=== PATIENT | female | born 1965 | race Caucasian/White ===

== ENCOUNTER 2023-04-24 15:31 | Outpatient (RCR) | payer BC, SELFPAY | END 2023-08-22 23:59 | disposition home or self-care (01) | PROVIDERS: PCP Orthopaedic Surgery; Visit Provider Orthopaedic Surgery | DX: M17.11 Unilateral primary osteoarthritis, right knee (principal); Z96.651 Presence of right artificial knee joint; M25.561 Pain in right knee; Z51.89 Encounter for other specified aftercare; M25.661 Stiffness of right knee, not elsewhere classified | CPT/HCPCS: 97161; 97535 ==

== ENCOUNTER 2023-04-29 09:12 | Day surgery (SDC) | payer BC, SELFPAY ==
[2023-04-29] VITALS (22 sets, daily range): BP systolic 103–148; BP diastolic 63–96; PULSE 51–99; RESP 14–18; TEMP 36.1–36.7; O2SAT 90–99; BMI 43.0
[2023-04-29] MEDS: ACETAMINOPHEN 500 MG TABLET 1000 MG PO ×2 (07:01→19:02)
[2023-04-29] MEDS: OXYCODONE (CR) 10 MG TAB.ER.12H PO (07:01)
[2023-04-29] MEDS: CELECOXIB 200 MG CAPSULE PO (07:01)
[2023-04-29] MEDS: LACTATED RINGERS 1000 ML 1,000 ML 100 ML IV ×2 (07:05→11:36)
[2023-04-29] MEDS: SODIUM CHLORIDE 0.9 % (FLUSH) 10 ML SYRINGE IVF (10:14)
--- NOTE | 2023-04-29 10:15 | SUR.PREOP ---
TIME?OUT:?1040 PT/RN/MDA?VERIFICATION?OF?SURGICAL?SITE Right Knee,?PROCEDURE Aductor Canal Block,?AND?CONSENT OBTAINED?PRIOR?TO?INVASIVE?PROCEDURE.
[2023-04-29] MEDS: fentaNYL 100 MCG/2 ML inj IVP (10:42)
[2023-04-29] MEDS: MIDAZOLAM HCL 1 MG/ML inj IVP (10:42)
[2023-04-29] MEDS: TRANEXAMIC ACID 100 MG/ML INJ 1000 MG IV (11:35)
[2023-04-29] MEDS: CEFAZOLIN 2 GM INJ IVP (11:35)
--- NOTE | 2023-04-29 11:50 | W.ANESCHARGE ---
Anesthesia Charges Start Date/Time Anesthesia Start Date: 04/29/23 Stop Date/Time Anesthesia Stop Date: 04/29/23
--- NOTE | 2023-04-29 11:51 | P.NB_ITS ---
Nerve Block Nerve Block Time Seen by Provider: 10:46 Date Seen: 04/29/23 Type of block requested by surgeon for post-operative analgesia: geniculars Side: right Time out performed: Yes Verification of patient name: Yes Verification of date of : Yes Site marking: site marked Name of person performing procedure: Godfrey Continuous monitoring Was continuous monitoring of O2 sat, B/P, phototypesetting equipment monitor, recorded every 15 minutes?: Yes Procedure Checklist: sterile prep, needles and gloves Medications given in 5ml increments after negative aspiration: Ropivicaine %: 0.5 mL: 9 Needle gauge: 25 Patient tolerated procedure well: Yes Block Charges Block Charge (with Pro Fee): Genicular Nerve Block Use of Ultrasound Machine for Block: No
--- NOTE | 2023-04-29 11:51 | W.PM.NB ---
Nerve Block Nerve Block Time Seen by Provider: 10:46 Date Seen: 04/29/23 Type of block requested by surgeon for post-operative analgesia: adductor canal Side: right Time out performed: Yes Verification of patient name: Yes Verification of date of : Yes Site marking: site marked Name of person performing procedure: Godfrey Continuous monitoring Was continuous monitoring of O2 sat, B/P, surveillance system monitor, recorded every 15 minutes?: Yes Procedure Checklist: sterile prep, needles and gloves Ultrasound guided. Images saved: Yes Medications given in 5ml increments after negative aspiration: Ropivicaine %: 0.5 mL: 20 Needle gauge: 20 Decadron (mg): 10 Precedex (mcg): 25 Patient tolerated procedure well: Yes Additional comments: Needle noted adjacent to nerve Block Charges Block Charge (with Pro Fee): Femoral Nerve Use of Ultrasound Machine for Block: Yes- US Guidance/pain block
--- NOTE | 2023-04-29 12:58 | CRLHL7_ITS ---
For Patients: As a result of the Cures Act, medical imaging exams and procedure reports are released immediately into your electronic medical record. You may view this report before your referring provider. If you have questions, please contact your health care provider. INDICATION: Followup right knee arthroplasty. TECHNIQUE: Two views of the right knee performed postoperatively. FINDINGS: Right total knee arthroplasty. Patellar resurfacing. The components are adequately aligned and well seated. Air within the soft tissues and joint space related to the surgery. IMPRESSION: Right total knee arthroplasty. The components are adequately aligned and well seated. Dictated by Trenton Bee MD @ 04/29/2023 2:12:36 PM (Electronically Signed)
--- NOTE | 2023-04-29 13:00 | P.ORPRC_ITS ---
Procedure Note Date of procedure: 04/29/23 Procedure: PREOPERATIVE DIAGNOSIS: Right knee osteoarthritis, morbid obesity POSTOPERATIVE DIAGNOSIS: Right knee osteoarthritis, morbid obesity NAME OF OPERATION: Right total knee arthroplasty SURGEON: Floyd Martinez MD DIRECTOR INTERNAL AUDIT: CONSUELO Farmer ANESTHESIA: Spinal ESTIMATED BLOOD LOSS: 0 mL COMPLICATIONS: None SPECIMENS: None DRAINS: None PREOPERATIVE ANTIBIOTICS: Ancef 3 grams, antibiotic impregnated cement IMPLANTS: 1. J&J Attune # 8 posterior stabilized femur 2. # 7 fixed-bearing revision tibial tray with a 14 mm x 50 mm cemented stem 3. # 8 posterior stabilized, 5 mm fixed-bearing polyethylene 4. 41 patella INDICATIONS: The patient is a 57-year-old with a longstanding history of severe, unrelenting right knee pain secondary to end-stage (grade IV) right knee osteoarthritis. Despite appropriate nonoperative management, including activity modification, anti-inflammatories, [id number] pain medication, bracing, physical therapy, and injections they continue to have pain and disability. Operative intervention was offered. The risks, benefits and expected outcomes were discussed in detail. These included but were not limited to: Infection, bleeding, injury to blood vessel or nerve, venous thromboembolism. All questions were answered to their satisfaction. Use of an recruitment and outreach assistant was necessary throughout the case for patient positioning and safety, soft tissue retraction, and closure. PROCEDURE: Spinal anesthesia was administered. The patient was placed supine on the operating table. The recruitment and outreach assistant made sure the patient was positioned appropriately. The lower extremity was prepped and draped in the usual sterile fashion. The limb was exsanguinated with the Oc bandage. The pneumatic tourniquet was inflated to 300 mmHg. A standard anterior incision was made with the knee in flexion. Subcutaneous dissection was sharply taken through fascial layer #1. Full-thickness medial and lateral flaps were elevated. The recruitment and outreach assistant retracted the soft tissues and protected them throughout the case. A standard medial parapatellar approach was made. The patella was everted. The infrapatellar fat pad was preserved. The menisci and cruciate ligaments were sharply d?brided. Marginal osteophytes were d?brided with the rongeur. The drill was used to penetrate the femoral canal. The canal was aspirated and irrigated with pulse lavage. The intramedullary femoral guide was placed for a 5-degree valgus cut, removing 10 mm off the distal femur. The saw was used to make the cut. Whitesides line and the trans epicondylar axis were marked. The femoral sizing guide was pinned onto the distal femur. Three degrees of external rotation nicely parallels the transepicondylar axis. Pins were placed for posterior referencing. The four-in-one cutting guide was pinned onto the distal femur. The anterior, posterior, and chamfer cuts were made. The recruitment and outreach assistant protected the collateral ligaments. The box cutting guide was pinned. The box cuts were made. The boxed trial was placed and was an excellent fit. Drill holes for the lugs were made. Attention was then turned to the proximal tibia. The extramedullary tibial guide was placed for a neutral varus/valgus cut with 5 degrees of posterior slope, removing 2 mm based off the medial tibial surface. The recruitment and outreach assistant protected the collateral ligaments and the neurovascular bundle. The saw was used to make the cut. Trial components were placed. The knee was nicely balanced in both flexion and extension. The trial components were removed. The tray was placed in appropriate rotation, parallel to our tibial cutting pins. It was pinned by the recruitment and outreach assistant. The long drill and the short drill were used. The assembled stemmed tibial trial was placed in appropriate rotation and the punch was used. The tray was removed. The punch was used again. We placed a bone plug in the femoral canal. Attention was then turned to the patella. [place] patellar thickness was 23 mm. The lobster claw resection guide was used with the 9.5 mm edison. The saw was used to make the cut. Drill holes were made by the recruitment and outreach assistant. The trial was placed and was an excellent fit. Cancellous surfaces were irrigated with pulse lavage and thoroughly dried by the recruitment and outreach assistant. We cemented the tibial component, then the femoral component. We impacted the 5 mm polyethylene onto the tibial tray. The knee was brought into full extension. We then cemented the patellar component. Excessive cement was removed. The cement was allowed to harden. The knee was taken through a range of motion and was found to be nicely balanced in both flexion and extension. The patella tracks centrally. The recruitment and outreach assistant did a three minute dilute Betadine solution soak. The recruitment and outreach assistant irrigated the wound with 3 liters of normal saline via pulse lavage. The recruitment and outreach assistant reapproximated the extensor mechanism with #1 Vicryl in an interrupted [id number] fashion. The recruitment and outreach assistant then ran the extensor mechanism with a #1 PDO Stratafix. The recruitment and outreach assistant closed the subcutaneous tissues with a 3-0 Stratafix and the skin with a running 3-0 Stratafix in a subcuticular fashion. Glue was used to seal the skin. The recruitment and outreach assistant placed a dry dressing, LUIS ENRIQUE stocking, and Polar Care. Sponge and needle counts were correct x2. The patient tolerated the procedure well. There were no apparent complications. They were carefully transferred to the hospital bed and taken to the postanesthesia care unit in satisfactory condition. PLAN: The patient will be mobilized with physical therapy. Aspirin will be used for DVT prophylaxis. They will be discharged to home once medically appropriate.
--- NOTE | 2023-04-29 13:29 | W.ANESCHARGE ---
Anesthesia Charges Start Date/Time Anesthesia Start Date: 04/29/23 Anesthesia Start Time: 11:16 Stop Date/Time Anesthesia Stop Date: 04/29/23 Anesthesia Stop Time: 13:29
[2023-04-29] MEDS: ONDANSETRON 2 MG/ML inj 4 MG IVP ×2 (13:43→21:39)
[2023-04-29] MEDS: fentaNYL 100 MCG/2 ML inj 50 MCG IVP (13:53)
--- NOTE | 2023-04-29 14:19 | SUR.PHASEI ---
patient met discharge criteria per anesthesia
--- NOTE | 2023-04-29 14:53 | PC.NURSE ---
End of Shift Note: Patient arrived to the unit aroun14:20 from PACU. Complaining of a little nausea but did receive zofran in PACU along with some discomfort in the knee she had just received pain medication also. Alert and orientated. Will continue to monitor.
[2023-04-29] MEDS: HYDROmorphone 0.5 mg/0.5 ml inj IVP ×3 (15:46→22:25)
[2023-04-29] MEDS: OXYCODONE 5 MG TABLET PO ×5 (16:02→22:25)
--- NOTE | 2023-04-29 17:14 | PM.IMCN1 ---
Date of Consult Patient: Norah Patient Consult date: 04/29/23 Requesting Physician: Orthopedics Primary Care Provider: Shayla Root D.O. Consult Narrative Reason for consult: Postop care HTN, hypothyroid, MARCO A, hyperlipidemia, ADHD, asthma, anxiety Narrative: Steff Marcum is a 57 year old woman with advanced right gonarthrosis undergoes elective right total knee arthroplasty today successfully without any complications. Review of Systems Status of ROS: Reports: 10 or more systems reviewed and unremarkable except as noted in History and below [facility] Medical History (Updated 04/29/23 @ 17:26 by Adolfo Dueñas MD) Insomnia ?G47.00 - Insomnia, unspecified (ICD-10) Adenomatous colon polyp ?D12.6 - Benign neoplasm of colon, unspecified (ICD-10) Thrombocytosis ?D75.839 - Thrombocytosis, unspecified (ICD-10) Leukocytosis ?D72.829 - Elevated white blood cell count, unspecified (ICD-10) Attention deficit hyperactivity disorder (ADHD) ?F90.9 - Attention-deficit hyperactivity disorder, unspecified type (ICD-10) Fatigue ?R53.83 - Other fatigue (ICD-10) Post concussion syndrome ?F07.81 - Postconcussional syndrome (ICD-10) Thrombocytopenia ?D69.6 - Thrombocytopenia, unspecified (ICD-10) Obstructive sleep apnea ?G47.33 - Obstructive sleep apnea (adult) (pediatric) (ICD-10) Nontoxic multinodular goiter ?E04.2 - Nontoxic multinodular goiter (ICD-10) Hypercholesterolemia ?E78.00 - Pure hypercholesterolemia, unspecified (ICD-10) 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) Anxiety ?F41.9 - Anxiety disorder, unspecified (ICD-10) Asthma ?J45.909 - Unspecified asthma, uncomplicated (ICD-10) Arthritis ?M19.90 - Unspecified osteoarthritis, unspecified site (ICD-10) Hypertension ?I10 - Essential (primary) hypertension (ICD-10) Sleep apnea ?G47.30 - Sleep apnea, unspecified (ICD-10) Neck pain ?M54.2 - Cervicalgia (ICD-10) Right knee meniscal tear ?S83.206A - Unspecified tear of unspecified meniscus, current injury, right knee, initial encounter (ICD-10) Hypothyroid ?E03.9 - Hypothyroidism, unspecified (ICD-10) Surgical History (Updated 04/29/23 @ 17:26 by Adolfo Dueñas MD) Status post cholecystectomy ?Z90.49 - Acquired absence of other specified parts of digestive tract (ICD-10) Status post colonoscopy with polypectomy ?Z98.890 - Other specified postprocedural states (ICD-10) Status post bariatric surgery ?Z98.84 - Bariatric surgery status (ICD-10) H/O section ?Z98.891 - History of uterine scar from previous surgery (ICD-10) History of right knee surgery ?Z98.890 - Other specified postprocedural states (ICD-10) Family History Father Dementia Diabetes type I Hypothyroid Sleep apnea Mother High blood pressure Sleep apnea Sister Thyroid cancer Social History Smoking Status: Never smoker Do you use any of these nicotine containing products: None How often do you have a drink containing alcohol: 2-4 times a month Alcohol type: hard liquor How many standard drinks containing alcohol do you have on a typical day: 1 or 2 How often do you have six or more drinks on one occasion: Never AUDIT-C Alcohol total score: 2 Non-prescribed substance use: denies use Caffeine: Yes (coffee, 2 cups/day) Are you using contraception or practicing any form of control: No Meds Home Medications and Allergies Home Medications Medication Instructions Recorded Confirmed Type albuterol sulfate 90 mcg/actuation 2 puff inhalation Q6H PRN 02/10/23 04/29/23 History aerosol inhaler aspirin 81 mg tablet,delayed 81 mg PO QDAY 02/10/23 04/29/23 History release atorvastatin 10 mg tablet 10 mg PO QHS 02/10/23 04/29/23 History biotin 1 mg capsule 1 mg PO QDAY 02/10/23 04/29/23 History cholecalciferol (vitamin D3) 50 50 mcg PO QDAY 02/10/23 04/29/23 History mcg (2,000 unit) capsule cyanocobalamin (vitamin B-12) 1,000 mcg PO QDAY 02/10/23 04/29/23 History 1,000 mcg capsule fluticasone propionate 250 1 inh inhalation BID 02/10/23 04/29/23 History mcg/actuation blister powder for inhalation levothyroxine 150 mcg capsule 150 mcg PO QDAY 02/10/23 04/29/23 History lisdexamfetamine 40 mg capsule 40 mg PO QAM 02/10/23 04/29/23 History (Vyvanse) losartan 100 1 tab PO QDAY 02/10/23 04/29/23 History mg-hydrochlorothiazide 12.5 mg tablet montelukast 10 mg tablet 10 mg PO QDAY 02/10/23 04/29/23 History multivitamin 1 tab PO QDAY 02/10/23 04/29/23 History omega-3 fatty acids 1,000 mg 1,000 mg PO QDAY 02/10/23 04/29/23 History capsule trazodone 50 mg tablet 50 mg PO QHS PRN 02/10/23 04/29/23 History venlafaxine 150 mg 150 mg PO QDAY 02/10/23 04/29/23 History capsule,extended release 24 hr venlafaxine 75 mg capsule,extended 75 mg PO QDAY 02/10/23 04/29/23 History release 24 hr Allergies Allergy/AdvReac Type Severity Reaction Status Date / Time codeine Allergy racing Verified 04/29/23 09:32 heart Exam Narrative: Exam Narrative: Examine her in the medical-surgical unit as she is laying in the semi recumbent position in her bed. Appears comfortable and in no acute distress. Vision and hearing are grossly normal. Alert and oriented to self, place, time, situation. Friendly, cooperative, articulate. Mood and affect are congruent. Obese. BMI 43. Neck is supple. No JVD or hepatojugular reflux. Lungs are clear to auscultation without wheezing, rhonchi, or rales. Chest wall excursions are full. No CVA tenderness or tenderness to percussion over the spine. Heart tones with regular rhythm, normal S1-S2, without murmur, gallop, or rub. PMI is not laterally displaced. Active bowel sounds, soft, nontender. No rebound or guarding. Moves all 4 extremities. No focal motor neurologic deficits. Const: Vital Signs, click to edit/add: Vital Signs - 24 hr 04/29/23 09:41 04/29/23 10:41 04/29/23 10:46 Temperature 98.1 F Pulse Rate 71 70 61 Pulse Rate [Pulse Oximeter] Respiratory Rate 16 16 16 Blood Pressure 122/83 132/78 121/70 Blood Pressure [Le ft Arm] Pulse Oximetry 98 99 99 Oxygen Delivery Me thod Room Air Nasal Cannula Nasal Cannula Oxygen Flow Rate 2 2 04/29/23 13:24 04/29/23 13:30 04/29/23 13:35 Temperature 97.1 F L 97.1 F L 97.1 F L Pulse Rate 66 62 60 Pulse Rate [Pulse Oximeter] Respiratory Rate 17 16 16 Blood Pressure 103/63 109/72 122/79 Blood Pressure [Le ft Arm] Pulse Oximetry 93 93 93 Oxygen Delivery Me thod Room Air Room Air Room Air Oxygen Flow Rate 04/29/23 13:40 04/29/23 13:45 04/29/23 13:50 Temperature 97.1 F L 97.1 F L 97.1 F L Pulse Rate 58 L 55 L 51 L Pulse Rate [Pulse Oximeter] Respiratory Rate 16 16 16 Blood Pressure 119/75 116/78 122/79 Blood Pressure [Le ft Arm] Pulse Oximetry 94 92 94 Oxygen Delivery Nd thod Room Air Room Air Room Air Oxygen Flow Rate 04/29/23 13:55 04/29/23 14:00 04/29/23 14:00 Temperature 97.1 F L 97.1 F L 97.0 F L Pulse Rate 52 L 55 L 86 Pulse Rate [Pulse Oximeter] Respiratory Rate 14 16 18 Blood Pressure 129/77 126/72 Blood Pressure [Le ft Arm] 118/80 Pulse Oximetry 95 94 Oxygen Delivery Me thod Room Air Room Air Room Air Oxygen Flow Rate 04/29/23 14:05 04/29/23 14:30 04/29/23 14:45 Temperature 97.1 F L 97.0 F L 97.0 F L Pulse Rate 56 L Pulse Rate [Pulse Oximeter] 55 L 56 L Respiratory Rate 16 18 18 Blood Pressure 123/78 Blood Pressure [Le ft Arm] 130/77 125/85 Pulse Oximetry 94 95 92 Oxygen Delivery Me thod Room Air Room Air Room Air Oxygen Flow Rate 04/29/23 15:00 04/29/23 15:00 04/29/23 15:15 Temperature 97.0 F L 97.0 F L Pulse Rate Pulse Rate [Pulse Oximeter] 57 L 59 L Respiratory Rate 18 18 Blood Pressure Blood Pressure [Le ft Arm] 122/81 138/87 Pulse Oximetry 94 93 93 Oxygen Delivery Me thod Room Air Room Air Oxygen Flow Rate Documenting provider has reviewed patient's vital signs: yes Assessment and Plan Assessment and plan (1) Bilateral primary osteoarthritis of knee: Problem comment: Medial compartment end-stage right worse than left Status: Acute (2) Osteoarthritis of right knee: Status: Acute (3) Status post total right knee replacement: Status: Acute (4) Hypertension: Status: Acute (5) Asthma: Status: Acute (6) Hypothyroid: Status: Acute (7) Obstructive sleep apnea: Problem comment: On home CPAP Status: Acute (8) Obesity: Problem comment: BMI 43 Status: Acute (9) Pneumonia: Problem comment: History of pneumonia early in 2022, resolved Status: Acute Plan 1. Reviewed impression with patient and . 2. Answered their questions. 3. Hold antihypertensive medications for now. 4. Resume asthma medications. 5. Continue with thyroid supplementation. 6. Continue with home CPAP. 7. Agree with postoperative venous thromboembolism prophylaxis efforts. 8. Agree with perioperative antibiotic prophylaxis 9. Patient ready for discharge from hospital from medical perspective. Will follow with Orthopedic surgery while patient is in hospital. Have completed discharge from hospitalist perspective. 10. Patient agreeable with above stated plans and recommendations.
[2023-04-29] MEDS: LACTATED RINGERS 1000 ML 1,000 ML 75 ML IV (18:18)
[2023-04-29] MEDS: ATORVASTATIN 10 MG TABLET PO (20:21)
[2023-04-29] MEDS: ASPIRIN 81 MG TABLET EC PO (20:21)
[2023-04-29] MEDS: SENNOSIDES 1 TAB TABLET 2 TAB PO (20:22)
--- NOTE | 2023-04-29 23:22 | PC.NURSE ---
End of shift-- Very pleasant and cooperative, alert and oriented patient. VSS and pt is afebrile. Pt has c/o pain in right knee which she rated as high as 9 out of 10 today and has been given Oxycodone and Dilaudid in addition to scheduled Tylenol and ice via cryo-cuff with only temporary relief. See eMAR for details. SpO2 noted to drop as low as 85-86% on RA and CPAP and O2 was applied at 2L. to maintain sats >90%. Will notify MD. Dressing to right knee is C/D/I and CMS WNL. LS CTA. She did c/o some mild nausea this evening and was given Zofran and an aroma therapy patch with stated relief. She did tolerate a regular dinner without difficulty. She was up to the chair and BR with assist of 1, belt and walker and tolerated it well. Voided 450ml of straw colored urine this shift. Report to HORTENSIA Julien.
[2023-04-30 01:10] VITALS: BP 124/82; PULSE 70; PULSE 77; RESP 18; TEMP 36.2; O2SAT 93
[2023-04-30] MEDS: OXYCODONE 5 MG TABLET PO ×4 (01:12→11:13)
[2023-04-30] MEDS: ONDANSETRON 2 MG/ML inj 4 MG IVP (01:13)
[2023-04-30] MEDS: ACETAMINOPHEN 500 MG TABLET 1000 MG PO ×2 (01:13→06:04)
[2023-04-30] MEDS: diphenhydrAMINE 50 MG/ML inj IVP (01:13)
[2023-04-30] MEDS: HYDROmorphone 0.5 mg/0.5 ml inj IVP (02:49)
[2023-04-30 06:00] VITALS: BP 133/76; PULSE 66; RESP 18; TEMP 36.1; O2SAT 92
[2023-04-30] MEDS: LEVOTHYROXINE 75 MCG TABLET 150 MCG PO (06:05)
[2023-04-30 06:16] LABS: Basophils Percent Auto 0.1 % (0.0-3.0); Eosinophils Percent Auto 0.1 % (0.0-7.0); Hematocrit 39.2 % (33.0-51.0); Hemoglobin* 12.8 gm/dL (12.0-16.0); Immature Granulocytes Pct Auto 0.3 %; Lymphocytes Percent Auto 5.4 % (20-44); Mean Corpuscular HGB Conc 33 gm/dL (32-36); Mean Corpuscular Hemoglobin 30 pg (26-34); Mean Corpuscular Volume 91 fL (80-100); Monocytes Percent Auto 5.2 % (0.0-11.0); Neutrophils Percent Auto 88.9 % (42.0-72.0); Platelet Count* 438 K/uL (140-440); RDW Coefficient of Variation % 14.6 % (11.5-15.5); White Blood Count* 19.02 K/uL (4.50-11.00)
[2023-04-30 06:17] LABS: Slide Review Reflex No
--- NOTE | 2023-04-30 06:19 | PC.NURSE ---
Shift note: The pt has been pleasant and cooperative with nursing staff. The right knee surgical dressing has been C/D/I. CMS on both legs are intact. The pt has been reporting 3-9/10 pain to the right knee; The pain has been well managed with PRN pain medications and Scheduled pain medication; X1 0.5 mg Dilaudid IVP was given for breakout throughout a pain was given this shift. 2L of oxygen administered via NC to maintain Spo2 in the 90s. Zofran was given x1 for nausea with a good relief. The pt was C/O mild itching on her chest, neck and legs; small redness noted to the chest and neck- 25mg Benadryl IV was given - the pt stated it helped a lot She was up to the BR this AM with a walker; she tolerated the activity with minor pain. Urine out was 400 cc this shift. The pt denied any acute distress throughout the night
[2023-04-30 06:30] LABS: Potassium* 4.4 mmol/L (3.6-5.1); Sodium* 138 mmol/L (135-149)
[2023-04-30 06:33] LABS: Creatinine* 0.7 mg/dL (0.5-1.5); Est. Creatinine Clearance* 93.78; Estimated Glomerular Filt Rate 101 ml/min; INR 1.03 (0.91-1.10); Prothrombin Time 14.1 Seconds
[2023-04-30 06:34] LABS: Blood Urea Nitrogen* 15 mg/dL (7-30)
[2023-04-30 07:30] VITALS: BP 132/84; PULSE 66; RESP 20; TEMP 36.9; O2SAT 98
[2023-04-30] MEDS: VENLAFAXINE ER 75 MG CAPSULE 225 MG PO (08:10)
[2023-04-30] MEDS: ASPIRIN 81 MG TABLET EC PO (08:10)
[2023-04-30] MEDS: SENNOSIDES 1 TAB TABLET 2 TAB PO (08:11)
[2023-04-30] MEDS: MONTELUKAST 10 MG TABLET PO (08:11)
--- NOTE | 2023-04-30 08:26 | PM.ORPN ---
Subjective Subjective Time Seen by Provider: 07:30 Date Seen: 04/30/23 Principal diagnosis: Status post right total knee arthroplasty Interval history: Steff is doing well this morning. She will discharge to home later today. Ortho Exam Narrative Exam Narrative: Alert and oriented x3. Patient is in no acute distress. Converses without labored breathing. Hearing is grossly intact. Ambulates with a Walker. Examination of the right lower extremity shows dressing is intact. There is no erythema or warmth or sign of infection. Bilateral calves are soft and nontender. CMS is intact right lower extremity. Mild edema. Mild effusion. Const Vital Signs, click to edit/add: Vital Signs - 24 hr 04/29/23 09:41 04/29/23 10:41 04/29/23 10:46 Temperature 98.1 F Pulse Rate 71 70 61 Pulse Rate [Pulse Oximeter] Respiratory Rate 16 16 16 Blood Pressure 122/83 132/78 121/70 Blood Pressure [Left Arm] Pulse Oximetry 98 99 99 Oxygen Delivery Method Room Air Nasal Cannula Nasal Cannula Oxygen Flow Rate 2 2 04/29/23 13:24 04/29/23 13:30 04/29/23 13:35 Temperature 97.1 F L 97.1 F L 97.1 F L Pulse Rate 66 62 60 Pulse Rate [Pulse Oximeter] Respiratory Rate 17 16 16 Blood Pressure 103/63 109/72 122/79 Blood Pressure [Left Arm] Pulse Oximetry 93 93 93 Oxygen Delivery Method Room Air Room Air Room Air Oxygen Flow Rate 04/29/23 13:40 04/29/23 13:45 04/29/23 13:50 Temperature 97.1 F L 97.1 F L 97.1 F L Pulse Rate 58 L 55 L 51 L Pulse Rate [Pulse Oximeter] Respiratory Rate 16 16 16 Blood Pressure 119/75 116/78 122/79 Blood Pressure [Left Arm] Pulse Oximetry 94 92 94 Oxygen Delivery Method Room Air Room Air Room Air Oxygen Flow Rate 04/29/23 13:55 04/29/23 14:00 04/29/23 14:00 Temperature 97.1 F L 97.1 F L 97.0 F L Pulse Rate 52 L 55 L 86 Pulse Rate [Pulse Oximeter] Respiratory Rate 14 16 18 Blood Pressure 129/77 126/72 Blood Pressure [Left Arm] 118/80 Pulse Oximetry 95 94 Oxygen Delivery Method Room Air Room Air Room Air Oxygen Flow Rate 04/29/23 14:05 04/29/23 14:30 04/29/23 14:45 Temperature 97.1 F L 97.0 F L 97.0 F L Pulse Rate 56 L Pulse Rate [Pulse Oximeter] 55 L 56 L Respiratory Rate 16 18 18 Blood Pressure 123/78 Blood Pressure [Left Arm] 130/77 125/85 Pulse Oximetry 94 95 92 Oxygen Delivery Method Room Air Room Air Room Air Oxygen Flow Rate 04/29/23 15:00 04/29/23 15:00 04/29/23 15:00 Temperature 97.0 F L Pulse Rate Pulse Rate [Pulse Oximeter] 57 L Respiratory Rate 18 18 Blood Pressure Blood Pressure [Left Arm] 122/81 Pulse Oximetry 94 93 Oxygen Delivery Method Room Air Oxygen Flow Rate 04/29/23 15:15 04/29/23 15:45 04/29/23 16:30 Temperature 97.0 F L 97.5 F L 97.5 F L Pulse Rate Pulse Rate [Pulse Oximeter] 59 L 63 71 Respiratory Rate 18 18 18 Blood Pressure Blood Pressure [Left Arm] 138/87 122/96 H 119/84 Pulse Oximetry 93 94 90 Oxygen Delivery Method Room Air Room Air Room Air Oxygen Flow Rate 04/29/23 17:15 04/29/23 18:15 04/29/23 19:12 Temperature 97.5 F L Pulse Rate Pulse Rate [Pulse Oximeter] 71 71 99 Respiratory Rate 18 16 18 Blood Pressure Blood Pressure [Left Arm] 137/86 141/83 H 148/93 H Pulse Oximetry 93 95 95 Oxygen Delivery Method Room Air Nasal Cannula Nasal Cannula Oxygen Flow Rate 2 2 04/29/23 20:15 04/30/23 01:10 04/30/23 01:10 Temperature 97.3 F L Pulse Rate Pulse Rate [Pulse Oximeter] 77 77 Respiratory Rate 18 18 Blood Pressure Blood Pressure [Left Arm] 120/94 H Pulse Oximetry 93 93 Oxygen Delivery Method Nasal Cannula Oxygen Flow Rate 2 04/30/23 01:10 04/30/23 06:00 Temperature 97.1 F L 97 F L Pulse Rate Pulse Rate [Pulse Oximeter] 70 66 Respiratory Rate 18 18 Blood Pressure Blood Pressure [Left Arm] 124/82 133/76 Pulse Oximetry 93 92 Oxygen Delivery Method Nasal Cannula Room Air Oxygen Flow Rate 2 Assessment and Plan Assessment and plan (1) Status post total right knee replacement: Problem details: 04/29/2023 Status: Acute Assessment and Plan: Plan for discharge is today to home if they meet discharge criteria. DVT prophylaxis includes aspirin 81 mg twice daily x1 month, Osbaldo stockings x1 month may remove for 1 hr per day, frequent ambulation Remove dressing in 1 week. Observe wound and phone Orthopedics with any questions or concerns Return to clinic in 1 week for a wound check Return to clinic in [address] Martinez Minimize narcotic use. Wean off and discontinue soon as possible. Activities as tolerated. No strenuous activity. Outpatient physical therapy as scheduled. Ice and elevate the operative extremity. No restriction on ice. (2) Hypertension: Status: Acute (3) Asthma: Status: Acute (4) Hypothyroid: Status: Acute (5) Obstructive sleep apnea: Problem details: On home CPAP Status: Acute (6) Obesity: Problem details: BMI 43 Status: Acute (7) Pneumonia: Problem details: History of pneumonia early in 2022, resolved Status: Acute
--- NOTE | 2023-04-30 15:11 | PC.SOCIAL ---
Per therapy, pt is moving around well during therapy. Pt has assistance from pt's spouse in recovery at home. There are no identified social work needs.
== END 2023-04-30 12:40 | disposition home or self-care (01) ==
LOC: OR 09:13 → MEDSURG 10:03
PROVIDERS: PCP Internal Medicine; Visit Provider Orthopaedic Surgery
PROC: (CPT 27447; principal; 2023-04-29 11:15)
DX: M17.11 Unilateral primary osteoarthritis, right knee (principal); G89.18 Other acute postprocedural pain; E66.01 Morbid (severe) obesity due to excess calories; I10 Essential (primary) hypertension; E03.9 Hypothyroidism, unspecified; G47.33 Obstructive sleep apnea (adult) (pediatric); J45.909 Unspecified asthma, uncomplicated; F41.9 Anxiety disorder, unspecified; F90.9 Attention-deficit hyperactivity disorder, unspecified type; Z68.41 Body mass index [BMI] 40.0-44.9, adult
CPT/HCPCS: 27447; 01402; 36415; 64447; 64454; 73560; 76942; 82565; 84132; 84295; 84520; 85025; 85610; 97110; 97116; 97161; 97165; 97535; A9270; C1776; J0690; J1100; J1170; J1200; J2250; J2371; J2405; J2704; J2795; J3010; J7120

== ENCOUNTER 2023-09-23 10:12 | Day surgery (SDC) | payer BC, SELFPAY ==
[2023-09-23] VITALS (24 sets, daily range): BP systolic 114–147; BP diastolic 74–95; PULSE 54–84; RESP 14–18; TEMP 36.4–37.1; O2SAT 90–100; BMI 40.4
[2023-09-23] MEDS: LACTATED RINGERS 1000 ML 1,000 ML 100 ML IV (10:15)
[2023-09-23] MEDS: SODIUM CHLORIDE 0.9 % (FLUSH) 10 ML SYRINGE IVF (10:45)
[2023-09-23] MEDS: ACETAMINOPHEN 500 MG TABLET 1000 MG PO ×2 (11:00→18:22)
[2023-09-23] MEDS: CELECOXIB 200 MG CAPSULE PO (11:00)
[2023-09-23] MEDS: OXYCODONE (CR) 10 MG TAB.ER.12H PO (11:00)
--- NOTE | 2023-09-23 11:43 | SUR.PREOP ---
TIME?OUT:?1144 PT/Aye Hernadez RN/Dr. Godfrey MDA?VERIFICATION?OF?SURGICAL?SITE left knee,?PROCEDURE,?AND?CONSENT OBTAINED?PRIOR?TO?INVASIVE?PROCEDURE.
[2023-09-23] MEDS: fentaNYL 100 MCG/2 ML inj IVP (11:45)
[2023-09-23] MEDS: MIDAZOLAM HCL 1 MG/ML inj IVP (11:45)
--- NOTE | 2023-09-23 12:19 | W.PM.NB ---
Nerve Block Nerve Block Time Seen by Provider: 11:40 Date Seen: 09/23/23 Type of block requested by surgeon for post-operative analgesia: adductor canal Side: left Time out performed: Yes Verification of patient name: Yes Verification of date of : Yes Site marking: site marked Name of person performing procedure: Godfrey Continuous monitoring Was continuous monitoring of O2 sat, B/P, application integration engineer, recorded every 15 minutes?: Yes Procedure Checklist: sterile prep, needles and gloves Ultrasound guided. Images saved: Yes Medications given in 5ml increments after negative aspiration: Ropivicaine %: 0.5 mL: 20 Needle gauge: 20 Decadron (mg): 10 Precedex (mcg): 25 Patient tolerated procedure well: Yes Additional comments: Needle noted adjacent to nerve Block Charges Block Charge (with Pro Fee): Femoral Nerve Use of Ultrasound Machine for Block: Yes- US Guidance/pain block
--- NOTE | 2023-09-23 12:20 | W.PM.NB ---
Nerve Block Nerve Block Time Seen by Provider: 11:50 Date Seen: 09/23/23 Type of block requested by surgeon for post-operative analgesia: geniculars Side: left Time out performed: Yes Verification of patient name: Yes Verification of date of : Yes Site marking: site marked Name of person performing procedure: Godfrey Continuous monitoring Was continuous monitoring of O2 sat, B/P, bending frame operator, recorded every 15 minutes?: Yes Procedure Checklist: sterile prep, needles and gloves Medications given in 5ml increments after negative aspiration: Ropivicaine %: 0.5 mL: 9 Needle gauge: 25 Patient tolerated procedure well: Yes Block Charges Block Charge (with Pro Fee): Genicular Nerve Block Use of Ultrasound Machine for Block: No
--- NOTE | 2023-09-23 12:21 | W.ANESCHARGE ---
Anesthesia Charges Start Date/Time Anesthesia Start Date: 09/23/23 Anesthesia Start Time: 12:54 Stop Date/Time Anesthesia Stop Date: 09/23/23 Anesthesia Stop Time: 15:01
[2023-09-23] MEDS: CEFAZOLIN 2 GM INJ IVP (13:00)
--- NOTE | 2023-09-23 14:22 | CRLHL7_ITS ---
For Patients: As a result of the Cures Act, medical imaging exams and procedure reports are released immediately into your electronic medical record. You may view this report before your referring provider. If you have questions, please contact your health care provider. Indication: LEFT TKA Technique: Two views left knee Findings/Impression: Hardware from a left total knee arthroplasty is in satisfactory position. Bone alignment is normal. No sign of acute fracture. Postop changes are within normal limits. Dictated by Luis Hoffmann MD @ 09/24/2023 12:12:54 PM (Electronically Signed)
--- NOTE | 2023-09-23 14:24 | P.ORPRC_ITS ---
Procedure Note Date of procedure: 09/23/23 Procedure: PREOPERATIVE DIAGNOSIS: Left knee osteoarthritis POSTOPERATIVE DIAGNOSIS: Left knee osteoarthritis NAME OF OPERATION: Left total knee arthroplasty SURGEON: Floyd Martinez MD MERCHANDISE PLANNER: CONSUELO Farmer ANESTHESIA: Spinal ESTIMATED BLOOD LOSS: 0 mL COMPLICATIONS: None SPECIMENS: None DRAINS: None PREOPERATIVE ANTIBIOTICS: Ancef 3 grams, antibiotic impregnated cement IMPLANTS: 1. J&J Attune revision CRS # 8 posterior stabilized femur, with a 14 mm x 50 mm cemented stem 2. # 7 revision CRS fixed-bearing tibia, with a 14 mm x 50 mm cemented stem 3. # 8 posterior stabilized, 5 mm fixed-bearing polyethylene 4. 41 patella INDICATIONS: The patient is a 57-year-old with a longstanding history of severe, unrelenting left knee pain secondary to end-stage (grade IV) left knee osteoarthritis. Despite appropriate nonoperative management, including activity modification, anti-inflammatories, qxwe-bso-mazzncu pain medication, bracing, physical therapy, and injections they continue to have pain and disability. Operative intervention was offered. The risks, benefits and expected outcomes were discussed in detail. These included but were not limited to: Infection, bleeding, injury to blood vessel or nerve, venous thromboembolism. All questions were answered to their satisfaction. Use of an pediatric dental assistant was necessary throughout the case for patient positioning and safety, soft tissue retraction, and closure. PROCEDURE: Spinal anesthesia was administered. The patient was placed supine on the operating table. The pediatric dental assistant made sure the patient was positioned appropriately. The lower extremity was prepped and draped in the usual sterile fashion. The limb was exsanguinated with the Oc bandage. The pneumatic tourniquet was inflated to 300 mmHg. A standard anterior incision was made with the knee in flexion. Subcutaneous dissection was sharply taken through fascial layer #1. Full-thickness medial and lateral flaps were elevated. The pediatric dental assistant retracted the soft tissues and protected them throughout the case. A standard medial parapatellar approach was made. The patella was everted. The infrapatellar fat pad was preserved. The menisci and cruciate ligaments were sharply d?brided. Marginal osteophytes were d?brided with the rongeur. The drill was used to penetrate the femoral canal. The canal was aspirated and irrigated with pulse lavage. The intramedullary femoral guide was placed for a 5-degree valgus cut, removing 10 mm off the distal femur. The saw was used to make the cut. Whitesides line and the trans epicondylar axis were marked. The femoral sizing guide was pinned onto the distal femur. Three degrees of external rotation nicely parallels the transepicondylar axis. Pins were placed for posterior referencing. The four-in-one cutting guide was pinned onto the distal femur. The anterior, posterior, and chamfer cuts were made. The pediatric dental assistant protected the collateral ligaments. The revision CRS trial was pinned. The box cuts were made. The drill guide was placed. The drill was used x2. The boxed, stemmed trial was placed and was an excellent fit. Attention was then turned to the proximal tibia. The extramedullary tibial guide was placed for a neutral varus/valgus cut with 5 degrees of posterior slope, removing 2 mm based off the medial tibial surface. The pediatric dental assistant protected the collateral ligaments and the neurovascular bundle. The saw was used to make the cut. Trial components were placed. The knee was nicely balanced in both flexion and extension. The trial components were removed. The tray was placed in appropriate rotation, parallel to our tibial cutting pins. It was pinned by the pediatric dental assistant and the drill x2 was used. The stemmed tibial trial was placed. The punch was used. The tray was removed. The punch was used again. Attention was then turned to the patella. Lytton patellar thickness was 23 mm. The lobster claw resection guide was used with the 9.5 mm edison. The saw was used to make the cut. Drill holes were made by the pediatric dental assistant. The trial was placed and was an excellent fit. Cancellous surfaces were irrigated with pulse lavage and thoroughly dried by the pediatric dental assistant. We cemented the tibial component, then the femoral component. We impacted the 5 mm polyethylene onto the tibial tray. The knee was brought into full extension. We then cemented the patellar component. Excessive cement was removed. The cement was allowed to harden. The knee was taken through a range of motion and was found to be nicely balanced in both flexion and extension. The patella tracks centrally. The pediatric dental assistant did a three minute dilute Betadine solution soak. The pediatric dental assistant irrigated the wound with 3 liters of normal saline via pulse lavage. The pediatric dental assistant reapproximated the extensor mechanism with #1 Vicryl in an interrupted rentqh-be-mrajr fashion. The pediatric dental assistant then ran the extensor mechanism with a #1 PDO Stratafix. The pediatric dental assistant closed the subcutaneous tissues with a 3-0 Stratafix and the skin with a running 3-0 Stratafix in a subcuticular fashion. Glue was used to seal the skin. The pediatric dental assistant placed a dry dressing, LUIS ENRIQUE stocking, and Polar Care. Sponge and needle counts were correct x2. The patient tolerated the procedure well. There were no apparent complications. They were carefully transferred to the hospital bed and taken to the postanesthesia care unit in satisfactory condition. PLAN: The patient will be mobilized with physical therapy. Aspirin will be used for DVT prophylaxis. They will be discharged to home once medically appropriate.
--- NOTE | 2023-09-23 15:58 | PM.IMCN1 ---
Date of Consult Consult date: 09/23/23 Requesting Physician: Orthopedics Primary Care Provider: Shayla Root Consult Narrative Narrative: HOSPITALIST CONSULT NAME OF OPERATION: Left total knee arthroplasty SURGEON: Floyd Martinez MD ANESTHESIA: Spinal ESTIMATED BLOOD LOSS: 0 mL COMPLICATIONS: None The hospital medicine team was asked by the orthopedic surgery team to manage the patient's post-op HTN, anxiety, insomnia, morbid obesity, hypothyroidism, MARCO A. There have been no perioperative complications. Updated and reviewed the active medical problems, past medical history, past surgical history, social history, allergies and medications in our electronic EMR. PHYSICAL EXAM: CODE STATUS: FULL CODE CONSTITUTIONAL: Conversive, good historian. A/O. Knows setting and context. VITAL SIGNS: see record. HEENT: Normocephalic, atraumatic. PERRL, EOMI, conjunctivae pink, no scleral icterus. Ears and nose externally normal. Pharynx normal. NECK: No JVD. No carotid bruit, no thyromegaly, no adenopathy. CHEST: Clear to auscultation bilaterally HEART: S1 and S2 normal. ABDOMEN: Flat, soft, nontender. Normal bowel sounds. Moderately obese. EXTREMITIES: No edema. MUSCULOSKELETAL: left knee surgical dressing intact. no hematoma evident. NEURO: Cranial nerves intact. Mentation normal. Normal affect. SKIN: No rashes, petechiae, concerning changes PSYCHIATRIC: Mentation normal. INVESTIGATIONS: EMR Reviewed; Pre-OP Reviewed DISPOSITION: DVT: Agree with Ortho team decision GI: PO intake PFSH [facility] Medical History (Updated 09/23/23 @ 16:45 by Ada Davila MD) Anxiety and depression ?F41.9 - Anxiety disorder, unspecified (ICD-10) ?F32.A - Depression, unspecified (ICD-10) Insomnia ?G47.00 - Insomnia, unspecified (ICD-10) Adenomatous colon polyp ?D12.6 - Benign neoplasm of colon, unspecified (ICD-10) Thrombocytosis ?D75.839 - Thrombocytosis, unspecified (ICD-10) Leukocytosis ?D72.829 - Elevated white blood cell count, unspecified (ICD-10) Attention deficit hyperactivity disorder (ADHD) ?F90.9 - Attention-deficit hyperactivity disorder, unspecified type (ICD-10) Fatigue ?R53.83 - Other fatigue (ICD-10) Post concussion syndrome ?F07.81 - Postconcussional syndrome (ICD-10) Thrombocytopenia ?D69.6 - Thrombocytopenia, unspecified (ICD-10) Obstructive sleep apnea ?G47.33 - Obstructive sleep apnea (adult) (pediatric) (ICD-10) Nontoxic multinodular goiter ?E04.2 - Nontoxic multinodular goiter (ICD-10) Hypercholesterolemia ?E78.00 - Pure hypercholesterolemia, unspecified (ICD-10) Kellie's disease ?E06.3 - Autoimmune thyroiditis (ICD-10) Anxiety ?F41.9 - Anxiety disorder, unspecified (ICD-10) Asthma ?J45.909 - Unspecified asthma, uncomplicated (ICD-10) Arthritis ?M19.90 - Unspecified osteoarthritis, unspecified site (ICD-10) Hypertension ?I10 - Essential (primary) hypertension (ICD-10) Sleep apnea ?G47.30 - Sleep apnea, unspecified (ICD-10) Neck pain ?M54.2 - Cervicalgia (ICD-10) Right knee meniscal tear ?S83.206A - Unspecified tear of unspecified meniscus, current injury, right knee, initial encounter (ICD-10) Hypothyroid ?E03.9 - Hypothyroidism, unspecified (ICD-10) Surgical History (Updated 09/23/23 @ 16:04 by Ada Davila MD) Status post left knee replacement ?Z96.652 - Presence of left artificial knee joint (ICD-10) History of arthroplasty of right knee (04/29/23) ?Z96.651 - Presence of right artificial knee joint (ICD-10) Status post cholecystectomy ?Z90.49 - Acquired absence of other specified parts of digestive tract (ICD-10) Status post colonoscopy with polypectomy ?Z98.890 - Other specified postprocedural states (ICD-10) Status post bariatric surgery ?Z98.84 - Bariatric surgery status (ICD-10) H/O section ?Z98.891 - History of uterine scar from previous surgery (ICD-10) History of right knee surgery ?Z98.890 - Other specified postprocedural states (ICD-10) Family History Father Dementia Diabetes type I Hypothyroid Sleep apnea Mother High blood pressure Sleep apnea Sister Thyroid cancer Social History What is your current living situation?: I presently have a place to live Problems where you live: no known problems In the past 12 months, utilities in danger of being shut off: no In past 12 months, lack of transportation kept you from medical appts, meetings, work, or getting things needed for daily living: no In the past 12 mos, have been you worried that your food would run out before you had money to buy more?: never true In the past 12 mos, the food you bought just didn't last and you didn't have money to buy more?: never true Highest level of school completed/degree received: Master's degree Smoking Status: Never smoker Do you use any of these nicotine containing products: None How often do you have a drink containing alcohol: never How many standard drinks containing alcohol do you have on a typical day: 1 or 2 How often do you have six or more drinks on one occasion: Never AUDIT-C Alcohol total score: 0 Non-prescribed substance use: denies use Caffeine: Yes (2-3 cup/coffee) How often does anyone, including family, friends and others, physically hurt you: never How often does anyone, including family, friends and others, insult or talk down to you: never How often does anyone, including family, friends and others, threaten you with harm: never How often does anyone, including family, friends and others, scream or curse at you: never Are you using contraception or practicing any form of control: No service: No Meds Home Medications and Allergies Home Medications Medication Instructions Recorded Confirmed Type aspirin 81 mg tablet,delayed 81 mg PO DAILY 02/10/23 09/23/23 History release cholecalciferol (vitamin D3) 50 50 mcg PO DAILY 02/10/23 09/23/23 History mcg (2,000 unit) capsule cyanocobalamin (vitamin B-12) 1,000 mcg PO DAILY 02/10/23 09/23/23 History 1,000 mcg capsule fluticasone propionate 250 1 inh inhalation BID 02/10/23 09/23/23 History mcg/actuation blister powder for inhalation levothyroxine 150 mcg capsule 150 mcg PO DAILY 02/10/23 09/23/23 History lisdexamfetamine 40 mg capsule 40 mg PO QAM 02/10/23 09/23/23 History (Vyvanse) losartan 100 1 tab PO DAILY 02/10/23 09/23/23 History mg-hydrochlorothiazide 12.5 mg tablet montelukast 10 mg tablet 10 mg PO HS 02/10/23 09/23/23 History multivitamin 1 tab PO DAILY 02/10/23 09/23/23 History omega-3 fatty acids 1,000 mg 1,000 mg PO DAILY 02/10/23 09/23/23 History capsule trazodone 50 mg tablet 150 mg PO HS PRN 02/10/23 09/23/23 History venlafaxine 150 mg 150 mg PO QPM 02/10/23 09/23/23 History capsule,extended release 24 hr venlafaxine 75 mg capsule,extended 75 mg PO DAILY 02/10/23 09/23/23 History release 24 hr albuterol sulfate 2.5 mg/3 mL 1 inhalation Q4H PRN wheezing 09/23/23 History (0.083 %) solution for nebulization atorvastatin 20 mg tablet 20 mg PO HS 09/23/23 09/23/23 History Allergies Allergy/AdvReac Type Severity Reaction Status Date / Time codeine Allergy racing Verified 09/23/23 10:20 heart Exam Const: Vital Signs, click to edit/add: Vital Signs - 24 hr 09/23/23 11:06 09/23/23 11:44 09/23/23 11:50 Temperature 98.7 F Pulse Rate 63 65 56 L Respiratory Rate 16 16 16 Blood Pressure 147/86 H 142/90 H 135/83 Pulse Oximetry 97 100 97 Oxygen Delivery Me thod Room Air Nasal Cannula Nasal Cannula Oxygen Flow Rate 2 2 09/23/23 12:00 09/23/23 12:30 09/23/23 15:00 Temperature 97.5 F L Pulse Rate 54 L 54 L 64 Respiratory Rate 16 16 16 Blood Pressure 123/81 119/77 137/83 Pulse Oximetry 98 97 94 Oxygen Delivery Me thod Nasal Cannula Nasal Cannula Room Air Oxygen Flow Rate 2 2 2 09/23/23 15:05 09/23/23 15:10 09/23/23 15:15 Temperature 97.8 F Pulse Rate 62 58 L 57 L Respiratory Rate 16 14 16 Blood Pressure 135/82 140/91 H 136/88 Pulse Oximetry 94 95 96 Oxygen Delivery Me thod Room Air Room Air Room Air Oxygen Flow Rate 2 2 2 09/23/23 15:20 09/23/23 15:25 09/23/23 15:30 Temperature 97.8 F Pulse Rate 56 L 58 L 58 L Respiratory Rate 16 16 16 Blood Pressure 141/88 H 133/89 138/89 Pulse Oximetry 95 96 96 Oxygen Delivery Me thod Room Air Room Air Room Air Oxygen Flow Rate 2 2 2 Assessment and Plan Assessment and plan (1) Status post left knee replacement: Problem comment: September 2023, Dr. Maritnez -[facility] medicine team is happy to follow the patient through to discharge. Status: Acute (2) Obstructive sleep apnea: Problem comment: On home CPAP Status: Acute (3) Asthma: Problem comment: -advair, albuterol, singulair -ordered ISP, and albuterol nebs prn Status: Acute (4) Hypertension: Problem comment: -Hyzaar daily -on hold post-op Status: Acute (5) Obesity: Problem comment: BMI 40.5 Status: Acute (6) Anxiety and depression: Problem comment: effexor, trazodone Status: Acute (7) Post concussion syndrome: Problem comment: -2012 - uses Vyvannse daily for concussion related lack of focus Status: Acute (8) Hypothyroid: Problem comment: -hx of kellie's -on daily replacement with levothyroxine Status: Acute (9) Attention deficit hyperactivity disorder (ADHD): Problem comment: daily Vyvanse previous Adderall use Status: Acute
[2023-09-23] MEDS: OXYCODONE 5 MG TABLET PO ×3 (16:32→18:33)
[2023-09-23] MEDS: HYDROmorphone 0.5 mg/0.5 ml inj IVP ×4 (16:52→21:24)
[2023-09-23] MEDS: LACTATED RINGERS 1000 ML 1,000 ML 75 ML IV (18:24)
--- NOTE | 2023-09-23 19:15 | PC.NURSE ---
Nursing Care Hours: [id number] Pt this shift arrived from PACU alert and oriented. Denies nausea. VSS. Bandage CDI, pedal pulses present. Pt instructed on IS use. Pain treated per eMAR, requiring both IV and oral routes. Benadryl x1 for itching. Advanced diet to regular, tolerated well. Drinking fluids. Did not get up or void yet.
[2023-09-23] MEDS: MONTELUKAST 10 MG TABLET PO (21:21)
[2023-09-23] MEDS: SENNOSIDES 1 TAB TABLET 2 TAB PO (21:21)
[2023-09-23] MEDS: ASPIRIN 81 MG TABLET EC PO (21:22)
[2023-09-23] MEDS: ATORVASTATIN 10 MG TABLET 20 MG PO (21:23)
[2023-09-23] MEDS: diphenhydrAMINE 50 MG/ML inj IVP (21:41)
[2023-09-24] MEDS: ACETAMINOPHEN 500 MG TABLET 1000 MG PO ×2 (00:04→07:10)
[2023-09-24] MEDS: OXYCODONE 5 MG TABLET PO ×3 (00:05→08:39)
[2023-09-24 03:35] VITALS: BP 124/83; PULSE 67; RESP 18; TEMP 36.3; O2SAT 92
[2023-09-24 06:05] LABS: Hematocrit 37.4 % (33.0-51.0); Hemoglobin* 12.3 gm/dL (12.0-16.0); Mean Corpuscular Hemoglobin 30 pg (26-34); Mean Corpuscular Volume 92 fL (80-100); Red Blood Count 4.07 m/uL (4.00-5.20); White Blood Count* 19.48 K/uL (4.50-11.00)
[2023-09-24 06:06] LABS: Basophils Percent Auto 0.1 % (0.0-3.0); Lymphocytes Percent Auto 5.1 % (20-44); Mean Corpuscular HGB Conc 33 gm/dL (32-36); Monocytes Percent Auto 3.7 % (0.0-11.0); Neutrophils Percent Auto 90.2 % (42.0-72.0); Platelet Count* 441 K/uL (140-440)
[2023-09-24 06:07] LABS: Slide Review Reflex No
[2023-09-24 06:09] LABS: Blood Urea Nitrogen* 18 mg/dL (7-30); Creatinine* 0.6 mg/dL (0.5-1.5); Est. Creatinine Clearance* 113.22; Estimated Glomerular Filt Rate 105 ml/min; Potassium* 4.2 mmol/L (3.6-5.1); Sodium* 135 mmol/L (135-149)
[2023-09-24 06:24] LABS: INR 0.94 (0.91-1.10); Prothrombin Time 13.1 Seconds
[2023-09-24] MEDS: LEVOTHYROXINE 75 MCG TABLET 150 MCG PO (07:05)
[2023-09-24 07:19] VITALS: BP 119/78; PULSE 59; RESP 14; TEMP 36.4; O2SAT 98
--- NOTE | 2023-09-24 07:25 | PM.ORPN ---
Subjective Subjective Time Seen by Provider: 07:25 Date Seen: 09/24/23 Principal diagnosis: Status post right knee replacement Interval history: Doris is comfortable this morning. EKG leads are being placed. Her skin was feeling flattery. she felt warm then Cool. She has felt a bit of nausea. She plans to discharge to home. Ortho Exam Narrative Exam Narrative: Alert and oriented x3. Patient is in no acute distress. Converses without labored breathing. Hearing is grossly intact. Ambulates with a walker. Examination of the left lower extremity shows dressing is intact. Mild effusion. Mild soft tissue edema about the left knee. No erythema or warmth or sign of infection. Quad strength 5/5. Bilateral calves are soft and nontender. CMS intact left lower extremity. Const Vital Signs, click to edit/add: Vital Signs - 24 hr 09/23/23 11:06 09/23/23 11:44 09/23/23 11:50 Temperature 98.7 F Pulse Rate 63 65 56 L Pulse Rate [Pulse Oximeter] Respiratory Rate 16 16 16 Blood Pressure 147/86 H 142/90 H 135/83 Blood Pressure [Left Arm] Blood Pressure [Right Arm] Pulse Oximetry 97 100 97 Oxygen Delivery Method Room Air Nasal Cannula Nasal Cannula Oxygen Flow Rate 2 2 09/23/23 12:00 09/23/23 12:30 09/23/23 15:00 Temperature 97.5 F L Pulse Rate 54 L 54 L 64 Pulse Rate [Pulse Oximeter] Respiratory Rate 16 16 16 Blood Pressure 123/81 119/77 137/83 Blood Pressure [Left Arm] Blood Pressure [Right Arm] Pulse Oximetry 98 97 94 Oxygen Delivery Method Nasal Cannula Nasal Cannula Room Air Oxygen Flow Rate 2 2 2 09/23/23 15:05 09/23/23 15:10 09/23/23 15:15 Temperature 97.8 F Pulse Rate 62 58 L 57 L Pulse Rate [Pulse Oximeter] Respiratory Rate 16 14 16 Blood Pressure 135/82 140/91 H 136/88 Blood Pressure [Left Arm] Blood Pressure [Right Arm] Pulse Oximetry 94 95 96 Oxygen Delivery Method Room Air Room Air Room Air Oxygen Flow Rate 2 2 2 09/23/23 15:20 09/23/23 15:25 09/23/23 15:30 Temperature 97.8 F Pulse Rate 56 L 58 L 58 L Pulse Rate [Pulse Oximeter] Respiratory Rate 16 16 16 Blood Pressure 141/88 H 133/89 138/89 Blood Pressure [Left Arm] Blood Pressure [Right Arm] Pulse Oximetry 95 96 96 Oxygen Delivery Method Room Air Room Air Room Air Oxygen Flow Rate 2 2 2 09/23/23 15:45 09/23/23 16:00 09/23/23 16:10 Temperature 97.6 F 97.6 F 97.6 F Pulse Rate 56 L Pulse Rate [Pulse Oximeter] 55 L 58 L Respiratory Rate 16 16 16 Blood Pressure Blood Pressure [Left Arm] 123/76 136/95 H Blood Pressure [Right Arm] 130/83 Pulse Oximetry 95 96 Oxygen Delivery Method Room Air Room Air Room Air Oxygen Flow Rate 09/23/23 16:15 09/23/23 16:30 09/23/23 17:00 Temperature 97.7 F Pulse Rate Pulse Rate [Pulse Oximeter] 58 L 70 66 Respiratory Rate 18 18 Blood Pressure Blood Pressure [Left Arm] 126/86 138/81 121/77 Blood Pressure [Right Arm] Pulse Oximetry 95 92 92 Oxygen Delivery Method Room Air Room Air Room Air Oxygen Flow Rate 09/23/23 17:30 09/23/23 18:00 09/23/23 19:20 Temperature 97.8 F Pulse Rate Pulse Rate [Pulse Oximeter] 70 71 77 Respiratory Rate 16 16 18 Blood Pressure Blood Pressure [Left Arm] 136/89 127/84 130/77 Blood Pressure [Right Arm] Pulse Oximetry 93 90 Oxygen Delivery Method Room Air Room Air Room Air Oxygen Flow Rate 09/23/23 20:20 09/23/23 21:20 09/23/23 23:00 Temperature 97.7 F 97.8 F 97.6 F Pulse Rate Pulse Rate [Pulse Oximeter] 84 72 74 Respiratory Rate 18 18 16 Blood Pressure Blood Pressure [Left Arm] 135/85 135/88 114/74 Blood Pressure [Right Arm] Pulse Oximetry 94 Oxygen Delivery Method Room Air Room Air Room Air Oxygen Flow Rate 09/24/23 03:35 Temperature 97.3 F L Pulse Rate Pulse Rate [Pulse Oximeter] 67 Respiratory Rate 18 Blood Pressure Blood Pressure [Left Arm] 124/83 Blood Pressure [Right Arm] Pulse Oximetry 92 Oxygen Delivery Method Room Air Oxygen Flow Rate Assessment and Plan Assessment and plan (1) Status post left knee replacement: Problem details: September 23, 2023, Dr. Martinez Status: Acute Assessment and Plan: EKG is normal. Plan for discharge is today to home if they meet discharge criteria. DVT prophylaxis includes aspirin 81 mg twice daily x1 month, Osbaldo stockings x1 month may remove for 1 hr per day, frequent ambulation Remove dressing in 1 week. Observe wound and phone Orthopedics with any questions or concerns Return to clinic in 1 week for a wound check Return to clinic in 6 weeks with surgeon Minimize narcotic use. Wean off and discontinue soon as possible. Activities as tolerated. No strenuous activity. Outpatient physical therapy as scheduled. Ice and elevate the operative extremity. No restriction on ice. Doris is prone to yeast infections after taking antibiotics. I spoke with Libzeth Nolen. She will speak with the patient regarding possibility of prophylactic fluconazole.
--- NOTE | 2023-09-24 07:38 | PC.NURSE ---
Patient pleasant, alert and oriented. Reported pain in left knee rated between 6-8/10 with movement, walking or standing. PRN Dilaudid and Oxycodone given. Patient reported feeling a little nauseated at times. Ambulated to the bathroom with assist of 1-2, gait belt and walker. Dressing clean, dry and intact.
[2023-09-24] MEDS: SENNOSIDES 1 TAB TABLET 2 TAB PO (08:38)
[2023-09-24] MEDS: ASPIRIN 81 MG TABLET EC PO (08:39)
[2023-09-24] MEDS: VENLAFAXINE ER 75 MG CAPSULE PO (08:39)
--- NOTE | 2023-09-24 10:36 | PC.NURSE ---
Discharge: Patient pleasant and cooperative. Patient vitally stable, lungs clear, BS WNL, IV removed, catheter intact. Patient rates pain 5-6/10, 5 of oxycodone given once. Patient 1 assist/walker, gb. Patient tolerating regular diet and urinating. Patient left knee dressing C/D/I. EKG performed this morning due to patient reporting chest feeling fluttery EKG=NSR, aware. Patient signed belongings sheet and discharge form. Patient had no further questions regarding discharge information. Patient left the floor by wheelchair to home with spouse and belongings at 1028.
--- NOTE | 2023-09-24 13:13 | PM.EN ---
Chart Event Note Time Seen by Provider: 08:10 Date Seen: 09/24/23 Chart Event Note: Follow up post operative consultation 09/23. Patient reported an unusual sensation when waking this morning, fluttering feeling in skin. No chest pain, tightness, SOB. Resolved when I see her. No complaints. Feeling well and looking forward to discharge. ECG obtained shows NSR with rate 66. Requests fluconazole for previous h/o yeast infection with oral and IV antibiotics. Discussed with Junior Bridges. Reasonably prescribed. Discharge today per ortho guidelines. Hospital medicine signing off.
--- NOTE | 2023-10-08 08:37 | W.ANESCHARGE ---
Anesthesia Charges Start Date/Time Anesthesia Start Date: 09/23/23 Anesthesia Start Time: 12:54 Stop Date/Time Anesthesia Stop Date: 09/23/23 Anesthesia Stop Time: 15:01
== END 2023-09-24 10:28 | disposition home or self-care (01) ==
LOC: OR 10:13 → MEDSURG 10:16
PROVIDERS: PCP Internal Medicine; Visit Provider Orthopaedic Surgery
PROC: (CPT 27447; principal; 2023-09-23 12:15)
DX: M17.12 Unilateral primary osteoarthritis, left knee (principal); G89.18 Other acute postprocedural pain; I10 Essential (primary) hypertension; F41.9 Anxiety disorder, unspecified; E66.01 Morbid (severe) obesity due to excess calories; G47.33 Obstructive sleep apnea (adult) (pediatric); F90.9 Attention-deficit hyperactivity disorder, unspecified type; G47.00 Insomnia, unspecified; F07.81 Postconcussional syndrome; F32.A Depression, unspecified; Z68.41 Body mass index [BMI] 40.0-44.9, adult
CPT/HCPCS: 27447; 01402; 36415; 64447; 64454; 73560; 76942; 82565; 84132; 84295; 84520; 85025; 85610; 97110; 97116; 97161; 97165; A9270; C1776; J0690; J1100; J1170; J1200; J2250; J2405; J2704; J2795; J3010; J7120

== ENCOUNTER 2024-11-23 06:29 | Day surgery (SDC) | payer BC, SELFPAY ==
[2024-11-23] VITALS (15 sets, daily range): BP systolic 108–140; BP diastolic 70–100; PULSE 56–74; RESP 16–20; TEMP 35.7–36.9; O2SAT 93–99; BMI 35.2
[2024-11-23] MEDS: CEFAZOLIN 2 GM INJ IVP (06:15)
[2024-11-23] MEDS: LACTATED RINGERS 1000 ML 1,000 ML 100 ML IV (06:20)
--- OUTSIDE RECORDS SUMMARY | 2024-11-23 06:32 | XMS_ITS | Clinical Summary ---
Author Organization [employer] [facility] Address [place], [place] [address] Care Team Providers Care Premium Note Interest Calculator Clerk Name Role Phone Shayla Root Primary Care Provider [phone] Allergies Active Allergy Reactions Criticality Noted Date Comments Codeine Tachycardia 04/29/2023 and itching and itching Gluten *Unknown 02/16/2024 Medications Cholecalciferol, Vitamin D3, 2,000 unit tabletIndication s:prevention of vitamin D deficiency Take 4,000 units by mouth once daily. 01/25/20 14 Active MULTIVITAMIN ORAL Take 1 tablet by mouth. 11/21/19 11 Active dawun-8-YXO-EPA- fish oil 300-1,000 mg capsule Take 1 capsule by mouth. 01/24/20 16 Active aspirin (ECOTRIN) 81 mg enteric coated tablet Take 81 mg by mouth. Active albuterol (PROVENTIL) 0.083 % neb solutionIndicati ons:Exacerbation of asthma, unspecified asthma severity, unspecified whether persistent Inhale 3 mL (2.5 mg) via a nebulizer every 4 hours if needed for Shortness Of Breath, Wheezing or Cough. 90 mL 03/13/20 23 Active NebulizerIndicat ions:Exacerbatio n of asthma, unspecified asthma severity, unspecified whether persistent,Pneum onia of right middle lobe due to infectious organism Nebulizer, disposable neb kit x 4, reuseable neb kit x 1, mask x 1, filters x 1. Frequency of use: daily; Medication: Albuterol Length of need: 3 months 1 Each 03/13/20 23 Active medication order composer c-Semaglutide 2.5mg/ml inject (10 units on syringe) subcutaneously weekly. MAY increase 10u weekly tolerated to max DOSE OF 90u. Active Lactobac 40-Bifido 3-S.thermop (Probiotic) 100 billion cell cap Take by mouth. Active ferrous fumarate/vit Bcomp,C (SUPER B COMPLEX ORAL) Take by mouth. A ctive psyllium husk/aspartame (NATURAL PSYLLIUM FIBER ORAL) Take by mouth. Activ e POLICOSANOL ORAL Take 20 mg by mouth. Active rhubarb root extract (ESTROVEN CMPLT MENOPAUSE RLF ORAL) Take by mouth. Activ e lisdexamfetamine (Vyvanse) 40 mg capsuleIndicatio ns:Attention deficit hyperactivity disorder (ADHD), predominantly inattentive type Take 1 Capsule (40 mg) by mouth once daily. 30 Capsule 04/16/20 24 Active fluticasone propion-salmeter oL (ADVAIR) 250-50 mcg/Dose diskus inhalerIndicatio ns:Moderate persistent extrinsic asthma without complication Inhale 1 Puff by mouth two times daily. 60 Each 12 03/06/20 24 Active venlafaxine (EFFEXOR XR) 75 mg cp24 Extended-Release capsuleIndicatio ns:anxiety with depression Take 1 Capsule (75 mg) by mouth once daily with a meal. 90 Capsule 1 07/10/20 24 Active VITAMIN B COMPLEX ORAL Take by mouth. Ac tive s-adenosylmethio nine sul tosyl (BRISA-E ORAL) Take by mouth. Ac tive traZODone (DESYREL) 100 mg tabletIndication s:Sleep concern Take 2 Tablets (200 mg) by mouth at bedtime if needed for Sleep. currently taking 200 mg 180 Tablet 3 07/15/20 24 Active losartan-hydroch lorothiazide (HYZAAR) 100-12.5 mg tabletIndication s:Benign essential hypertension Take 1 Tablet by mouth once daily. 90 Tablet 3 07/15/20 24 Active montelukast (SINGULAIR) 10 mg tabletIndication s:Moderate persistent extrinsic asthma without complication Take 1 Tablet (10 mg) by mouth once daily. 90 Tablet 3 07/15/20 24 Active albuterol HFA (PRO-AIR; VENTOLIN; PROVENTIL) 90 mcg/actuation inhalerIndicatio ns:Moderate persistent extrinsic asthma without complication Inhale 2 Puffs by mouth every 4 hours if needed for Shortness Of Breath or Wheezing (cough). 1 Each 1 07/15/20 24 Active sennosides-docus ate (SENOKOT S) (8.6-50 mg) tabletIndication s:Lipoma, unspecified site Take 1 Tablet by mouth 2 times daily if needed for Constipation. 20 Tablet 08/03/20 24 Active venlafaxine (EFFEXOR XR) 150 mg Extended-Release capsuleIndicatio ns:Anxiety Take 1 Capsule (150 mg) by mouth once daily with evening meal. 90 Capsule 1 09/30/20 24 Active levothyroxine (SYNTHROID) 137 mcg tabletIndication s:Acquired hypothyroidism,H ashimoto's disease TAKE 1 TABLET BY MOUTH ONCE DAILY 90 Tablet 10/23/19 25 Active lisdexamfetamine (Vyvanse) 40 mg capsuleIndicatio ns:Attention deficit hyperactivity disorder (ADHD), predominantly inattentive type Take 1 Capsule (40 mg) by mouth once daily. 30 Capsule 11/04/19 25 Active semaglutide, weight loss, (Wegovy) 1 mg/0.5 mL subcutaneous penIndications:S tatus post bariatric surgery,Class 2 severe obesity with body mass index (BMI) of 35 to 39.9 with serious comorbidity (HC) Inject 1 mg subcutaneous once weekly. 2 mL 11/04/19 25 Active lisdexamfetamine (Vyvanse) 40 mg capsuleIndicatio ns:Attention deficit hyperactivity disorder (ADHD), predominantly inattentive type Take 1 Capsule (40 mg) by mouth once daily. 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 She's been very busy lately, so this hasn't worked as well at the 10mg dose. We are bumping up to 15mg for a while to see how this works. We can always decrease back down at a later time. Thrombocythemia 02/04/2020 Overview (05/10/2022): Saw hematology who recommended a baby aspirin daily and needs to follow up with them. Initially there was elevated leukocytes and hgb as well, but those resolved and platelets remained elevated. Fatigue 08/12/2019 Obstructive sleep apnea syndrome in adult 2016 Benign essential hypertension 02/24/2017 Overview (05/10/2022): Overview: Hypertension (HTN) Essential Benign Extrinsic asthma 02/19/2016 Non-toxic multinodular goiter 07/19/2014 Post concussion syndrome 07/14/2014 Overview (05/10/2022): Takes Adderall as needed for days she really needs to concentrate. Does not take daily. Status post bariatric surgery 01/15/2013 Derangement of medial meniscus 01/10/2009 History of abnormal cervical Papanicolaou smear 09/02/2008 Acquired hypothyroidism 08/28/2007 Hyperlipidemia 08/28/2007 Polyp of colon Resolved Problems Problem Noted Date Diagnosed Date Resolved Date Thrombocytosis 05/19/2022 11/19/2024 Encounters Date Type Department Care Team Description 11/19/2024 12:35 PM [employer]CIAL [employer]EDIT HEAD Office Visit [facility] [address] [facility] [place] [phone] Eve Brock, Pre-Op Exam ([facility] 11/23/24) 11/18/2024 Travel 11/17/2024 Telephone [facility] [phone] Shayla Root DO Prior Authorization (semaglutide, weight loss, (Wegovy) 1 mg/0.5 mL subcutaneous pen Approved 11/17/24-06/17/25) 11/16/[address] [place] [address] Shayla Root DO Referral (REFERRAL REQUEST: PT) 11/13/2024 Travel 11/04/[address] [place] [address] Shayla Root DO Refill Request (lisdexamfetamine (Vyvanse)) 11/03/2024 Orders Only [facility] Scanner 1 scan: (1-Ord) TAREEN DERM, SHAVE REMOVAL, 11/03/2024 10/25/2024 3:30 PM COMMERCIAL CREDIT HEAD Orders Only [address] [place] [address] Lab, [facility] 10/25/2024 Travel 10/20/[address] [place] [address] Shayla Root DO Refill Request (Levothyroxine) 08/30/2024 Orders Only [facility] Scanner 1 scan: (1-Ord) TAREEN DERMATOLOGY, SHAVE BIOPSY, 08/30/2024 from Last 3 Months Immunizations Name Administration Dates Next Due COVID-19 VACCINE SPIKEVAX (M ODERNA 50MCG/0.5ML) 12YO+ PFS 07/15/2024 COVID-19 vaccine (Moderna 100mcg/0.5mL) PF, MDV 01/24/2021,12/27/2020 COVID-19 vaccine (Moderna Jimmy roberto 50mcg/0.25mL) PF, MDV 08/13/2021 INFLUENZA, IIV3 PF (AGE >= 6 MO) 07/15/2024 Influenza A (H1N1), Inactivated 2009 Influenza RIV4 (Age 18+ Year s) PRESERV FREE 07/23/2019 Influenza Virus, Unspecified 08/13/2021, 08/12/2017,09/03/2016,2015,07/14/2014,09/10/2013,07/09/2012,1 ,08/10/2008,08/19/2007, 005,08/30/2003 Influenza, IIV3 (Age 6-35 mos) 07/24/2009,2007 Influenza, IIV3 (Age >=3 years) 07/09/20 12,08/19/2007,10/10/2005,2002 Influenza, IIV4 06/30/2023,,07/10/2020,2016,09/03/2016,12/15/2015 Pneumococcal Conj 20-valent (Prevnar 20) 06/30/2023 Pneumococcal Poly,23-Valent (Pneumovax) 02/19/2016 Pneumococcal conj 13-Valent (Prevnar 13) 02/24/2017 Td (Age >=7 Years) 04/25/2005 Tdap 06/30/2023,01/15/2013 Zoster (Shingrix-RZV, recombinant) 05/10/2022, Family History Medical History Relation Name Comments No Known Problems Brother Anxiety disorder Daughter Dementia Father Diabetes type I Father No Known Problems Maternal Aunt Heart Disease Maternal Grandfather Heart attack Maternal Grandfather Dementia Maternal Grandmother Leukemia Maternal Grandmother No Known Problems Maternal Uncle Hypertension Mother Osteoporosis Mother Diabetes type I Paternal Grandfather Lymphoma Paternal Grandfather Heart Disease Paternal Grandmother Diabetes Paternal Uncle Anxiety disorder Sister Hypertension Sister Thyroid cancer Sister Celiac disease Son 1 Anxiety disorder Son 2 Relation Name Status Comments Brother Alive Daughter Alive Father Alive Maternal Aunt Alive Maternal Grandfather Maternal Grandmother Maternal Uncle Alive Mother Alive Paternal Grandfather Paternal Grandmother Paternal Uncle Sister Alive Son 1 Alive Son 2 Alive Social History Tobacco Use Types Packs/Day Years Used Date Smoking Tobacco: Never Passive Smoke Exposure: Past Smokeless Tobacco: Never Tobacco Cessation:Counseling Given: Not Answered Passive Exposure Comments:dad smoked in child ma life Alcohol Use Standard Drinks/Week Comments Yes 0 (1 standard drink = 0.6 oz pure alcohol) occasionally wine, beer or liquor PHQ-2 Answer Date Recorded PHQ-2 TOTAL SCORE 0 07/15/2024 Social Connections Answer Date Recorded Do you often feel lonely or isolated from those around you? 0 07/12/2024 Financial Resource Strain Answer Date R ecorded Difficulty of Paying Living Expenses 3 07/12/2024 Difficulty of Paying Living Expenses Not on file 07/12/2024 Food Insecurity Answer Date Recorded Do you worry your food will run out before you are able to buy more? 1 07/12/2024 Transportation Needs Answer Date Record ed Does lack of transportation keep you from medica l appointments? 1 07/12/2024 Does lack of transportation keep you from work, meetings or getting things that you need? 1 07/12/2024 Housing Stability Answer Date Recorded What is your housing situation today? 1 07/12/2024 Utilities Answer Date Recorded Do you have trouble paying f or utilities (for example, heat, electricity, water, phone)? 1 07/12/2024 Comments No Sex and Gender Information Value Date Recorded Sex Assigned at Not on file Legal Sex Female 6:59 AM COMMERCIAL CREDIT HEAD Gender Identity Not on file Sexual Orientation Not on file Obstetrics History Last Filed Vital Signs Vital Sign Reading Time Taken Comments Blood Pressure 112/78 11/19/2024 12:40 PM COMMERCIAL CREDIT HEAD Pulse 74 11/19/2024 12:40 PM COMMERCIAL CREDIT HEAD Temperature 36.1 C (97 F) 08/03/2024 12:45 PM CDT Respiratory Rate 16 08/03/2024 1:15 PM CDT Oxygen Saturation 97% 08/16/2024 8:36 AM COMMERCIAL CREDIT HEAD Inhaled Oxygen Concentration - - Weight 111.1 kg (245 lb) 11/19/2024 12:40 PM COMMERCIAL CREDIT HEAD Height 176.4 cm (5' 9.45) 08/03/2024 9:42 AM CD T Body Mass Index 35.71 08/03/2024 9:42 AM CDT Plan of Treatment Upcoming Encounters Date Type Department Care Team (Late st Contact Info) Description 01/17/2025 1:00 PM CDT Office Visit [facility] [address] [place] [address] Shayla Root, DO [address] [place] [address] 07/18/2025 7:30 AM CDT Office Visit [address] [place] [phone] Shayla Root, [address] [place] [address] Health Maintenance Due Date Last Done Comments HIV for age 15-65 1981 Mammogram for age 45-75 03/05/2025 03/05/20, 12/02/2022, 09/14/2021 (Verified in Care Everywhere or Patient Record) BMI (ht and wt on same day) for age 18+ 07/15/2025 07/15/2024, 09/17/2023, 06/30/2023, Additional history exists Depression screening for age 12+ 07/19/2025 07/19/2024, 07/15/2024, 07/15/2024, Additional history exists Colonoscopy through age 75 08/26/2025 08/26/2022, Pap test for age 21-65 08/13/2026 (Verified in Care Everywhere or Patient Record) Lipids for age 45-75 07/15/2029 07/15/2024, 06/30/2023, 11/11/2022, Additional history exists Tetanus booster 06/30/2033 06/30/2023, 04/0 02/2013, 04/25/2005 Hepatitis C screening for ag e 18-79 Completed 05/10/2022 Zoster (shingles) series for age 50+ Completed 05/10/2022, 09/12/2020 Pneumococcal series for age 50+ Completed 06/30/2023, 02/24/2017, 02/19/2016 Tdap Completed 06/30/2023, 01/15/2013 COVID-19 vaccine series Completed 07/15/20, 08/10/2023, 09/08/2022, Additional history exists Influenza for age 50-64 Completed 07/15/20, 06/30/2023, 09/08/2022, Additional history exists Procedures Procedure Name Priority Date/Time Associated Diagnosis Comments POTASSIUM Routine 11/19/2024 1:04 PM [employer]CIAL [employer]EDIT HEAD Preop examination Status post total bilateral knee replacement SCAN-OPERATIVE/PROC EDURE REPORT 11/03/2024 12:00 AM COMMERCIAL CREDIT HEAD TSH WITH REFLEX Routine 10/25/2024 3:37 PM COMMERCIAL CREDIT HEAD Acquired hypothyroidism Tamiko's disease SCAN-OPERATIVE/PROC EDURE REPORT 08/30/2024 12:00 AM COMMERCIAL CREDIT HEAD LIPID PANEL W REFLEX MEASURED LDL Routine 07/15/2024 1:27 PM CDT Hyperlipidemia, unspecified hyperlipidemia type XR MAMMO ELENA BILAT SCREEN Routine 03/05/2024 10:51 AM CDT Visit for screening mammogram COLONOSCOPY 08/26/2022 8:37 AM COMMERCIAL CREDIT HEAD ANTI HCV Routine 05/10/2022 11:51 AM CDT Need for hepatitis C screening test from Last 3 Months or Most Recently Relevant to Health Maintenance Results * POTASSIUM (11/19/2024 1:04 PM COMMERCIAL CREDIT HEAD) POTASSIUM 4.3 3.5 - 5.3 mmol/L [facility] Blood BLOOD SPECIMEN / Unknown 11/19/2024 1:04 PM COMMERCIAL CREDIT HEAD 11/19/2024 1:04 PM COMMERCIAL CREDIT HEAD Narrative [facility] - 11/20/2024 4:08 AM COMMERCIAL CREDIT HEAD FASTING:NO FASTING: NO Eve Brock DO CHEMISTRY Final Result [facility] [address] [place] [address], [facility] [address] [place] [address] * SCAN-OPERATIVE/PROCEDURE REPORT (11/03/2024 12:00 AM COMMERCIAL CREDIT HEAD) us Scanner OTHER Final Result * TSH WITH REFLEX (10/25/2024 3:37 PM COMMERCIAL CREDIT HEAD) TSH W/REFLEX TO FT4 1.41 0.40 - 4.50 mIU/L [facility] Blood BLOOD SPECIMEN / Unknown 10/25/2024 3:37 PM COMMERCIAL CREDIT HEAD 10/25/2024 3:39 PM COMMERCIAL CREDIT HEAD Narrative [facility] - 10/26/2024 4:07 AM COMMERCIAL CREDIT HEAD FASTING:NO FASTING: NO Shayla Root DO CHEMISTRY Final Result [facility] [address] [place] [address], [facility] [address] [place] [address] * SCAN-OPERATIVE/PROCEDURE REPORT (08/30/2024 12:00 AM COMMERCIAL CREDIT HEAD) us Scanner OTHER Final Result * (ABNORMAL) LIPID PANEL W REFLEX MEASURED LDL (07/15/2024 1:27 PM CDT) CHOLESTEROL, TOTAL 209(H) <200 mg/dL [facility] HDL CHOLESTEROL 54 > OR = 50 mg/dL [facility] TRIGLYCERIDES 126 <150 mg/dL [facility] LDL-CHOLESTEROL 131(H) mg/dL (calc) [facility] Comment: Reference range: <100 Desirable range <100 mg/dL for primary prevention; <70 mg/dL for patients with CHD or diabetic patients with > or = 2 CHD risk factors. LDL-C is now calculated using the Froylan calculation, which is a validated novel method providing better accuracy than the Friedewald equation in the estimation of LDL-C. Oc AUSTIN et al. JENNY. 2013;310(19): 9683-4788 (http://education.Placed.CreoPop/faq/XHR837) CHOL/HDLC RATIO 3.9 <5.0 (calc) [facility] NON HDL CHOLESTEROL 155(H) <130 mg/dL (calc) [facility] Comment: For patients with diabetes plus 1 major ASCVD risk factor, treating to a non-HDL-C goal of <100 mg/dL (LDL-C of <70 mg/dL) is considered a therapeutic option. Blood BLOOD SPECIMEN / Unknown 07/15/2024 1:27 PM CDT 07/15/2024 1:29 PM CDT Narrative [facility] - 07/16/2024 5:28 AM CDT FASTING:YES FASTING: YES Shayla Root DO CHEMISTRY Final Result [facility] [address] [place] [address], [facility] [address] [place] [address] * XR MAMMO ELENA BILAT SCREEN (03/05/2024 10:51 AM CDT) Anatomical Region Laterality Modality BREASTS, Breast Left, Breast Right Bilateral Mammography Impressions 03/05/2024 10:57 AM CDT There is no radiographic evidence for malignancy. Recommend annual mammograms. MAMMOGRAM ASSESSMENT: ACR 1 Negative PATIENTS: You will also receive a letter with your examination results in an easy to read format. If you have questions about your results, please contact your referring provider. Narrative 03/05/2024 10:57 AM CDT For Patients: As a result of the 21st Century Cures Act, medical imaging exams and procedure reports are released immediately into your electronic medical record. You may view this report before your referring provider. If you have questions, please contact your health care provider. XR MAMMO ELENA BILAT SCREEN [[id number]] CLINICAL HISTORY: This is an asymptomatic 58 y.o. patient. INDICATION FOR EXAM: Mammogram Screening. TECHNIQUE: CC & MLO views were obtained. This study was evaluated with the assistance of Computer-Aided Detection. Breast Tomosynthesis was used in interpretation. COMPARISON FILM: Yes 12/02/22 [facility] FINDINGS: The breasts are almost entirely fatty. There are no dominant masses, suspicious micro calcifications or areas of architectural distortion. us Shayla Root DO MAMMO Final Result * COLONOSCOPY (08/26/2022 8:37 AM COMMERCIAL CREDIT HEAD) 08/26/2022 8:37 AM COMMERCIAL CREDIT HEAD Narrative Transcriptions Ej Aguiar, - 08/26/2022 6:47 PM CST Patient Name: Steff Marcum Procedure Date: 08/26/2022 Gender: Female Date of : 1965 Admit Type: Ambulatory Procedure: Colonoscopy Proceduralist: Ej Aguiar MD [facility] Referring MD: Shayla Root Indications/Pre-Op Diagnosis: High risk colon cancer surveillance:Personal history of colonic polyps, Last colonoscopy5 years ago Medications: Propofol per Anesthesia Procedure Description: The patient had risks, benefits and alternatives explained to andgave informed consent. The patient had a stable cardiopulmonary status and judged an adequate candidate for conscious sedation. The endoscope [id number] was passed through the anus andadvanced to the cecum, identified by appendiceal orifice and ileocecal valve.The colonoscopy was performed without difficulty. The patient toleratedthe procedure well. The quality of the bowel preparation was good. Anatomical landmarks were photographed. Complications: No immediate complications. Estimated Blood Loss & Specimen: Estimated blood loss was minimal. Specimen collected - Yes and sent to Laboratory Findings: Two sessile polyps were found in the ascending colon. The polyps were2 to 4 mm in size. These polyps were removed with a cold biopsyforceps. Resection and retrieval were complete. Verification of patient identification for the specimen was done. Estimated blood loss was minimal. A 6 mm polyp was found in the hepatic flexure. The polyp was semi-pedunculated. The polyp was removed with a hot snare. Resectionand retrieval were complete. Verification of patient identification forthe specimen was done. Estimated blood loss was minimal. Non-bleeding internal hemorrhoids were found during retroflexion. The hemorrhoids were Grade II (internal hemorrhoids that prolapse butreduce spontaneously). Impressions/Post-Op Diagnosis: - Two 2 to 4 mm polyps in the ascending colon, removed with a cold biopsy forceps. Resected and retrieved. - One 6 mm polyp at the hepatic flexure, removed with a hot snare. Resected and retrieved. - Non-bleeding internal hemorrhoids. Recommendation: - Discharge patient to home. - Patient has a contact number available for emergencies. The signsand symptoms of potential delayed complications were discussed with the patient. Return to normal activities tomorrow. Written discharge instructions were provided to the patient. - High fiber diet. - Continue present medications. - Await pathology results. - Repeat colonoscopy in 3 - 5 years for surveillance based onpathology results. Moderate Sedation: Moderate (conscious) sedation was personally administered by an anesthesia professional. The following parameters were monitored:oxygen saturation, heart rate, blood pressure, and response to care. Ej Aguiar MD 08/26/2022 6:47:18 PM This report has been signed electronically. Note Initiated On: 08/26/2022 8:37 AM us Ej Aguiar DO PROCEDURE ORD Fi nal Result * ANTI HCV (05/10/2022 11:51 AM CDT) HEPATITIS C ANTIBODY Non-React sotero Non-React sotero 05/10/2022 9:25 PM CDT [facility] Comment:Antibodies to HCV no t detected; does not exclude the possibility of exposure to HCV. Blood BLOOD SPECIMEN / Unknown Venipuncture / Unknown 05/10/2022 11:51 AM CDT 05/10/2022 11:54 AM CDT us Shayla Pappasn Dk DO SEND OUTS Final Result [facility] [address] [place] [address], [place] from Last 3 Months or Most Recently Relevant to Health Maintenance Insurance [facility] [employer] [facility] [employer] [facility] [employer] Advance Directives * Full Code (Latest Code Status on File) Date Activated Date Inactivated Comments 08/03/2024 9:31 AM 08/03/2024 3:47 PM Question Answer Comments Code Status Discussion: Unable to Assess Preferences, Provider to review later * Full Code Date Activated Date Inactivated Comments 08/26/2022 7:44 AM 08/26/2022 12:23 PM Question Answer Comments Code Status Discussion: Discussed * Full Code Date Activated Date Inactivated Comments 09/29/2017 8:07 AM 09/29/2017 1:17 PM Care Teams Premium Note Interest Calculator Clerk Relationship Specialty Start Date End Date Shayla Root DO [address] [place] [address] [place] [address] PCP - General Internal Medicine 05/10/22
[2024-11-23] MEDS: SODIUM CHLORIDE 0.9 % (FLUSH) 10 ML SYRINGE IVF (07:05)
--- NOTE | 2024-11-23 08:24 | SUR.OPER ---
PATIENT QUESTIONS ANSWERED SATISFACTORILY PREOPERATIVELY.? PATIENT BROUGHT TO OR #3 PER CART.? Patient positioned supine on OR #3 bed.? The perioperative?team supported arms bilaterally on arm boards.? Final approval of positioning by surgeon.? CONTINUOUS IRRIGATION OF THE BILATERAL KNEES DURING THE PROCEDURE WITH NACL.
[2024-11-23] MEDS: BUPIVACAINE 0.25% 30 ML INJECTION ×2 (08:45→09:26)
--- NOTE | 2024-11-23 09:30 | P.ORPRC_ITS ---
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 Operative intervention was recommended. The risks, benefits and expected outcomes were discussed in detail. These included but were not limited to: Infection, bleeding, injury to blood vessel or nerve, venous thromboembolism. All questions were answered to their satisfaction. PROCEDURE: Spinal anesthesia was administered. The patient was placed supine on the operating room table. The both lower extremities were prepped and draped in the usual sterile fashion. We approached the left knee 1st. The limb was exsanguinated with the Oc bandage. The pneumatic tourniquet was inflated to 300 mmHg. A standard anterolateral portal was established. The arthroscope was introduced. The working portal was established anteromedially. Diagnostic arthroscopy was performed with findings as follows: The patellar component is intact with circumferential scarring surrounding it. The femoral component is normal, the tibial polyethylene is normal. The scarring posterior to the patellar tendon was debrided with the radiofrequency probe and shaver. A superolateral portal was placed. Then we aggressively debrided around the patellar component and posterior to the quads tendon with the shaver and radiofrequency probe. Arthroscopic instruments were removed, the portal sites were closed with a 3-0 nylon. Portals were injected with 0.25% Marcaine without epinephrine. The tourniquet was released on the left. We then approached the right knee. The limb was exsanguinated with the Oc bandage. The pneumatic tourniquet was inflated to 300 mmHg. A standard anterolateral portal was established. The arthroscope was introduced. The working portal was established anteromedially. Diagnostic arthroscopy was performed with findings as follows: The patellar component is intact with circumferential scarring surrounding it. The femoral component is normal, the tibial polyethylene is normal. The scarring posterior to the patellar tendon was debrided with the radiofrequency probe and shaver. A superolateral portal was placed. Then we aggressively debrided around the patellar component and posterior to the quads tendon with the shaver and radiofrequency probe. There was cement in the lateral gutter, just off the femoral component. This was debrided with the 4.0 mm round bur and shaver. Arthroscopic instruments were removed, the portal sites were closed with a 3-0 nylon. Portals were injected with 0.25% Marcaine without epinephrine. Dry dressings were applied, the tourniquet was released on the right. Sponge and needle counts were correct x 2. The patient tolerated the procedure well. There were no apparent complications. They were carefully transferred to the hospital bed and taken to the postanesthesia care unit in satisfactory condition. PLAN: The patient will be discharged to home. They may weightbear as tolerates. Range of motion will be unrestricted. They will follow up in the office in 2 weeks for a wound check and suture removal.
--- NOTE | 2024-11-23 09:51 | P.ANES_ITS ---
Anesthesia Charges Start Date/Time Anesthesia Start Date: 11/23/24 Anesthesia Start Time: 07:45 Stop Date/Time Anesthesia Stop Date: 11/23/24 Anesthesia Stop Time: 09:45 Coding CPT Codes CPT Codes: ANESTH KNEE JOINT SURGERY - 57140 ([id number]) P2 - PATIENT W/MILD SYST DISEASE, QK - OPERATIONS OFFICER 2-4 CNCRNT ANES PROC, QX - LIFE GUARD SVC W/ MD MED DIRECTION
--- NOTE | 2024-11-23 09:51 | W.ANESCHARGE ---
Anesthesia Charges Start Date/Time Anesthesia Start Date: 11/23/24 Anesthesia Start Time: 07:45 Stop Date/Time Anesthesia Stop Date: 11/23/24 Anesthesia Stop Time: 09:45 Coding CPT Codes CPT Codes: ANESTH KNEE JOINT SURGERY - 69226 ([id number]) P2 - PATIENT W/MILD SYST DISEASE, QK - PARKING STATION ATTENDANT 2-4 CNCRNT ANES PROC, QX - PUBLICATION DISTRIBUTOR SVC W/ MD MED DIRECTION
--- NOTE | 2024-11-23 09:59 | P.ANES_ITS ---
Anesthesia Charges Start Date/Time Anesthesia Start Date: 11/23/24 Anesthesia Start Time: 07:45 Stop Date/Time Anesthesia Stop Date: 11/23/24 Anesthesia Stop Time: 09:45 Coding CPT Codes CPT Codes: ANESTH KNEE JOINT SURGERY - 39911 ([id number]) QK - MODERN DANCER 2-4 CNCRNT ANES PROC, QX - SENIOR SOLUTIONS WORKFLOW CONSULTANT SVC W/ MD MED DIRECTION, P2 - PATIENT W/MILD SYST DISEASE
--- NOTE | 2024-11-23 09:59 | W.ANESCHARGE ---
Anesthesia Charges Start Date/Time Anesthesia Start Date: 11/23/24 Anesthesia Start Time: 07:45 Stop Date/Time Anesthesia Stop Date: 11/23/24 Anesthesia Stop Time: 09:45 Coding CPT Codes CPT Codes: ANESTH KNEE JOINT SURGERY - 94576 ([id number]) QK - SHIP LOADER 2-4 CNCRNT ANES PROC, QX - FINANCE ANALYST SVC W/ MD MED DIRECTION, P2 - PATIENT W/MILD SYST DISEASE
--- NOTE | 2024-11-23 11:40 | SUR.PHASEII ---
Pt up with walker. Able to void in restroom. Slight dizziness when first up but then resolved. Pt eating yogurt up in chair.
== END 2024-11-23 12:04 | disposition home or self-care (01) ==
LOC: OR 06:30
PROVIDERS: PCP Internal Medicine; Visit Provider Orthopaedic Surgery
PROC: (CPT 29870; principal; 2024-11-23 07:45)
DX: M25.862 Other specified joint disorders, left knee (principal); M25.861 Other specified joint disorders, right knee
CPT/HCPCS: 29877; 01400; J0665; J0690; J1100; J2250; J2371; J2405; J2704; J3010; J7120